=== PATIENT | female | born 1990 | race Caucasian/White ===

== ENCOUNTER 2019-03-23 18:27 | Emergency (ER) | payer MEDICAID ==
[2019-03-23 22:32] LABS: URINE BLOOD (Dip) POC 1+ (NEGATIVE); URINE GLUCOSE (Dip) POC Negative (NEGATIVE); URINE KETONES (Dip) POC Negative (NEGATIVE); URINE LEUKOCYTE EST (Dip) POC Negative (NEGATIVE); URINE NITRITE (Dip) POC Negative (NEGATIVE); URINE TOTAL PROTEIN POC Negative (NEGATIVE)
[2019-03-23 22:32] LABS: URINE PH (Dip) POC 5.5 (5.0-8.5)
[2019-03-23] MEDS: KETOROLAC 30 MG INJ IM (22:32)
[2019-03-23] MEDS: DIAZEPAM 5 MG TAB PO (22:32)
[2019-03-23] MEDS: predniSONE 20 MG TAB PO (22:52)
== END 2019-03-24 02:02 | disposition home or self-care (01) ==
LOC: FTE 03-24 02:02
DX: M54.5 Low back pain (principal)
CPT/HCPCS: 72100; 81003; 81025; 96372; 99284-25